=== PATIENT | female | born 1945 | race American Indian/Alaskan Native ===

== ENCOUNTER 2017-12-17 09:25 | Emergency (ER) | payer MEDICARE ==
[2017-12-17 09:26] VITALS: BMI 35.2
--- NOTE | 2017-12-17 10:02 | ED PDOC ---
Arrival/HPI - General Chief Complaint: Back Pain Time Seen by Provider: 12/17/17 09:31 - History of Present Illness Narrative History of Present Illness (Text): 12/17/17 09:49 72yo female with PMHx of hypothyroid, anxiety, hypertension, chronic back pain secondary to spinal stenosis present with complaint of right sided lower back pain that radiates to her lower leg.States her PMD gave her Toradol and Tizanidine, but it didn't help her pain for the past few days. She made appointment with Orthopedist for next month. States she spoke with her PMD and was advised to go to ED. She denies trauma, saddle anesthesia, upper ripping/ tearing back pain, abdominal pain, focal weakness, urinary symptoms, urinary/ fecal incontinence. Past Medical History - Provider Review Nursing Documentation Reviewed: Yes - Infectious Disease Hx of Infectious Diseases: None - Tetanus Immunization Tetanus Immunization: Unknown - Cardiac Hx Pacemaker: No - Pulmonary Hx Respiratory Disorders: No - Neurological Hx Paralysis: No - HEENT Hx Cataracts: Yes (sx on both) - Renal Hx Renal Disorder: No - Endocrine/Metabolic Hx Endocrine Disorders: No Hx Hypothyroidism: Yes - Hematological/Oncological Hx Blood Transfusions: Yes (NOVEMBER 2013) Hx Blood Transfusion Reaction: Yes - Integumentary Hx Dermatological Disorder: No - Musculoskeletal/Rheumatological Hx Musculoskeletal Disorders: No - Gastrointestinal Hx Gastrointestinal Disorders: Yes - Genitourinary/Gynecological Hx Genitourinary Disorders: No Hx Reproductive Disorders: No - Psychiatric Hx Emotional Abuse: No Hx Physical Abuse: No Hx Substance Use: No - Surgical History Hx Cataract Extraction: Yes Hx Orthopedic Surgery: Yes (B/L HIP SX) Hx Vascular Access Device: Yes (PICC LINE) Other/Comment: CARPAL TUNNEL, HEEL SPUR - Anesthesia Hx Anesthesia Reactions: No Hx Malignant Hyperthermia: No - Suicidal Assessment Feels Threatened In Home Enviroment: No Family/Social History - Physician Review Nursing Documentation Reviewed: Yes Family/Social History: Unknown Family HX Smoking Status: Never Smoked Hx Alcohol Use: No Hx Substance Use: No Hx Substance Use Treatment: No Allergies/Home Meds Allergies/Adverse Reactions: Allergies acetaminophen [From Vicodin] Allergy (Verified 12/17/17 09:47) RASH hydrocodone bitartrate [From Vicodin] Allergy (Verified 12/17/17 09:47) RASH oxycodone HCl [From Percocet] Allergy (Verified 12/17/17 09:47) PAIN Home Medications: Home Meds Medication Instructions Recorded Confirmed Cholecalciferol [Vitamin D] 2,000 unit PO DAILY 06/08/16 12/17/17 Cyanocobalamin (Vitamin B-12) 1 tab PO DAILY 06/08/16 12/17/17 [Vitamin B12 68 mg-2 mg] Hydrochlorothiazide [Microzide] 25 mg PO DAILY 06/08/16 12/17/17 Levothyroxine Sodium [Unithroid] 100 mcg PO DAILY 06/08/16 12/17/17 Ketorolac 10 mg PO Q6 PRN 12/17/17 12/17/17 LORazepam [Ativan] 1 mg PO PRN PRN 12/17/17 12/17/17 tiZANidine 4 mg PO TID PRN 12/17/17 12/17/17 Review of Systems - Physician Review All systems were reviewed & negative as marked: Yes - Review of Systems Constitutional: Normal Eyes: Normal ENT: Normal Respiratory: Normal Cardiovascular: Normal Gastrointestinal: Normal Genitourinary Female: Normal Musculoskeletal: Back Pain Skin: Normal Neurological: Normal Endocrine: Normal Hemo/Lymphatic: Normal Psychiatric: Normal Physical Exam Vital Signs Reviewed: Yes Vital Signs Temp Pulse Resp BP Pulse Ox 12/17/17 11:26 98.3 F 58 L 18 152/69 H 98 12/17/17 10:07 98.4 F 53 L 18 160/74 H 100 Temperature: Afebrile Blood Pressure: Normal Pulse: Regular Respiratory Rate: Normal Appearance: Positive for: Well-Appearing, Non-Toxic, Comfortable Pain Distress: None Mental Status: Positive for: Alert and Oriented X 3 - Systems Exam Head: Present: Atraumatic, Normocephalic Pupils: Present: PERRL Extroacular Muscles: Present: EOMI Conjunctiva: Present: Normal Mouth: Present: Moist Mucous Membranes Neck: Present: Normal Range of Motion Respiratory/Chest: Present: Clear to Auscultation, Good Air Exchange. No: Respiratory Distress, Accessory Muscle Use Cardiovascular: Present: Regular Rate and Rhythm, Normal S1, S2. No: Murmurs Abdomen: No: Tenderness, Distention, Peritoneal Signs Back: Present: Paraspinal Tenderness (Right paralumbar tenderness), Pain with Leg Raise (Right leg). No: Midline Tenderness Upper Extremity: Present: Normal Inspection. No: Cyanosis, Edema Lower Extremity: Present: Normal Inspection. No: Edema Neurological: Present: GCS=15, CN II-XII Intact, Speech Normal Skin: Present: Warm, Dry, Normal Color. No: Rashes Psychiatric: Present: Alert, Oriented x 3, Normal Insight, Normal Concentration Medical Decision Making ED Course and Treatment: 12/17/17 18:07 Pt presented for stated history. Her pain was controlled in ED. She notes that her pain improved in ED with medication. she was ambulatory and neurologically intact. she was Dc home with lidoderm patch. She have Toradol and tinazidine at home and was advised to continue with her medication. Referred to her PMD. - Medication Orders Current Medication Orders: Discontinued Medications Cyclobenzaprine HCl (Flexeril) 10 mg PO STAT STA Stop: 12/17/17 09:48 Last Admin: 12/17/17 10:02 Dose: 10 mg Dexamethasone (Decadron Inj) 10 mg IM STAT STA Stop: 12/17/17 09:49 Last Admin: 12/17/17 10:02 Dose: 10 mg IM Administration Charges Document 12/17/17 10:02 SF (Rec: 12/17/17 10:02 SF [id number] Injection Site MAR Injection Site Left Deltoid Charges for Administration # of IM Administrations 1 Ketorolac Tromethamine (Toradol) 60 mg IM STAT STA Stop: 12/17/17 09:48 Last Admin: 12/17/17 10:06 Dose: 60 mg MAR Pain Assessment Document 12/17/17 10:06 SF (Rec: 12/17/17 10:07 SF [id number] Pain Reassessment Is this a pain reassessment? Yes Sleep Is patient sleeping during reassessment? No Presence of Pain Presence of Pain Yes Pain Scale Used Pain Scale Used Numeric IM Administration Charges Document 12/17/17 10:06 SF (Rec: 12/17/17 10:07 SF [id number] Injection Site MAR Injection Site Right Deltoid Charges for Administration # of IM Administrations 1 Disposition/Present on Arrival - Present on Arrival Any Indicators Present on Arrival: No History of DVT/PE: Yes History of Uncontrolled Diabetes: No Urinary Catheter: No History of Decub. Ulcer: No History Surgical Site Infection Following: None - Disposition Have Diagnosis and Disposition been Completed?: Yes Diagnosis: Back pain Disposition: HOME/ ROUTINE Disposition Time: 11:20 Patient Plan: Discharge Condition: STABLE Discharge Instructions (ExitCare): Low Back Pain (DC) Additional Instructions: Follow up with your doctor/Pain management Return to ED for any new or worsening symptoms Prescriptions: Lidocaine 5% [Lidoderm] 1 patch TP BID #10 patch Referrals: Anibal Sarah DO [Primary Care Provider] - Follow up with primary Forms: [employer] ([place])
[2017-12-17 10:15] VITALS: RESP 18
[2017-12-17 11:27] VITALS: BP 152/69; PULSE 58; TEMP 98.3; O2SAT 98
== END 2017-12-17 11:39 | disposition home or self-care (01) ==
LOC: ED 09:25
DX: M54.5 Low back pain (principal); I10 Essential (primary) hypertension; E03.9 Hypothyroidism, unspecified
CPT/HCPCS: 96372; 99284; J1100; J1885

== ENCOUNTER 2017-12-25 17:26 | Inpatient (IN) | payer MEDICARE ==
[2017-12-25 17:45] VITALS: BMI 35.6
--- NOTE | 2017-12-25 18:11 | ED PDOC ---
Arrival/HPI - General Chief Complaint: ENT Problem Time Seen by Provider: 12/25/17 17:48 Historian: Patient - History of Present Illness Narrative History of Present Illness (Text): 12/25/17 18:10 pt p/w + < 1 day onset of worsening throat pain; pt states pain mostly to left throat region, swallowing food/liquid causes more pain; pt states no drooling/ voice changes; + rigors/chills/sweats/shakes yesterday as well as this morning; pt did not felt warm/did not check her temp; pt states no fever, no sob/chest pain, no ear pain, no moon, no coughing/wheezing, no abd pain, + nausea, no vomiting, no appetite, no urinary/bowel changes, no fall/trauma/travel, ? sick contact; pt states she was in the Emergency department 2 weeks prior for lower back pain/strain evaluation; pt also noted 2 weeks timeframe of persistent burping; pt states no LOC, + mild dizziness/lightheadedness; pt is here for further eval; pt's without other complaints. PCP: DR george Time/Duration: 24 hours Symptom Onset: Sudden Symptom Course: Unchanged Quality: Stabbing Severity Level: Severe Activities at Onset: Rest Context: Home Past Medical History - Provider Review Nursing Documentation Reviewed: Yes - Travel History Have you recently traveled outside [place] w/in the past 3 mons?: No - Past History Past History: No Previous - Infectious Disease Hx of Infectious Diseases: None - Tetanus Immunization Tetanus Immunization: Unknown - Reproductive Menopause: Yes Currently : No - Cardiac Hx Pacemaker: No - Pulmonary Hx Respiratory Disorders: No - Neurological Hx Paralysis: No - HEENT Hx Cataracts: Yes (sx on both) - Renal Hx Renal Disorder: No - Endocrine/Metabolic Hx Endocrine Disorders: No Hx Hypothyroidism: Yes - Hematological/Oncological Hx Blood Transfusions: Yes (NOVEMBER 2013) Hx Blood Transfusion Reaction: Yes - Integumentary Hx Dermatological Disorder: No - Musculoskeletal/Rheumatological Hx Musculoskeletal Disorders: No - Gastrointestinal Hx Gastrointestinal Disorders: Yes - Genitourinary/Gynecological Hx Genitourinary Disorders: No Hx Reproductive Disorders: No - Psychiatric Hx Emotional Abuse: No Hx Physical Abuse: No Hx Substance Use: No - Surgical History Hx Cataract Extraction: Yes Hx Orthopedic Surgery: Yes (B/L HIP SX) Hx Vascular Access Device: Yes (PICC LINE) Other/Comment: CARPAL TUNNEL, HEEL SPUR - Anesthesia Hx Anesthesia Reactions: No Hx Malignant Hyperthermia: No - Suicidal Assessment Feels Threatened In Home Enviroment: No Family/Social History - Physician Review Nursing Documentation Reviewed: Yes Family/Social History: No Known Family HX Smoking Status: Never Smoked Hx Alcohol Use: No Hx Substance Use: No Hx Substance Use Treatment: No Allergies/Home Meds Allergies/Adverse Reactions: Allergies acetaminophen [From Vicodin] Allergy (Verified 12/25/17 17:43) RASH hydrocodone bitartrate [From Vicodin] Allergy (Verified 12/25/17 17:43) RASH oxycodone HCl [From Percocet] Allergy (Verified 12/25/17 17:43) PAIN Home Medications: Home Meds Medication Instructions Recorded Confirmed Cholecalciferol [Vitamin D] 2,000 unit PO DAILY 06/08/16 12/25/17 Cyanocobalamin (Vitamin B-12) 1 tab PO DAILY 06/08/16 12/25/17 [Vitamin B12 68 mg-2 mg] Hydrochlorothiazide [Microzide] 25 mg PO DAILY 06/08/16 12/25/17 Levothyroxine Sodium [Unithroid] 100 mcg PO DAILY 06/08/16 12/25/17 Ketorolac 10 mg PO Q6 PRN 12/17/17 12/25/17 LORazepam [Ativan] 1 mg PO PRN PRN 12/17/17 12/25/17 tiZANidine 4 mg PO TID PRN 12/17/17 12/25/17 Review of Systems - Review of Systems Constitutional: Fatigue. absent: Night Sweats Eyes: Normal ENT: Sore Throat. absent: Hearing Changes Respiratory: Normal. absent: SOB, Cough, Sputum, Wheezing Cardiovascular: Normal. absent: Chest Pain, Orthopnea, Syncope Gastrointestinal: Nausea. absent: Abdominal Pain, Vomiting Genitourinary Female: Normal Musculoskeletal: Normal Skin: Normal Neurological: Dizziness. absent: Headache Endocrine: Diaphoresis Hemo/Lymphatic: Normal Psychiatric: Normal Physical Exam - Physical Exam Narrative Physical Exam (Text): 12/25/17 18:44 General: alert/awake, GCS = 15, oriented x 3, resting in bed, uncomfortable, cooperative, interactive; mild distress due to pain Head: NC/AT EYE: PERRLA, EOMI, sclera anicteric, no nystagmus, no photophobia; visual field intact b/l Facial: WNL Oral: uvula/tongue are midline, no exudate/lesions, noted posterior pharynx mild erythema/no ulcerations/lesions, no drooling/stridor, no dysphonia; intact dentitions; no fetid odor NECK: intact ROM, no midline tenderness, no nuchal rigidity, no meningeal signs ; no step off; no crepitus noted Chest: CTA b/l, no w/r/r; no tachypenia, no accessory muscle use noted Cardiac: +S1, +S2, no m/r/r, no tachycardia Abdominal: +BS, soft/nd/nt, well nourished patient; no masses/rebound/guarding/ rigidity; no jaeger's sign, no mcburney's point tenderness Extremities: intact ROM, strength 5/5 grossly intact in all limbs, neurovasc intact b/l; + ambulatory; reflex +2/2; no pitting edema noted b/l BACK: no step off, no midline tenderness, NO crepitus, no gross deformities noted; Intact ROM SKIN: cap refill < 1 sec, no ulcerations, no petechiae, no rashes; no gross pallor noted NEURO: CNII-XII WNL, no facial asymmetries, no slurr speech, oriented x 3 NIH stroke scale ~ 0 Psych: normal insight, normal affect; follows command with ease Vital Signs Reviewed: Yes Vital Signs Temp Pulse Resp BP Pulse Ox 12/25/17 21:54 67 19 168/80 H 97 12/25/17 17:44 98.5 F 78 18 159/76 H 97 Temperature: Afebrile Blood Pressure: Hypertensive Pulse: Regular Respiratory Rate: Normal Appearance: Positive for: Well-Appearing, Non-Toxic, Uncomfortable. No: Ill- Appearing, Unkept Pain Distress: Mild Mental Status: Positive for: Alert and Oriented X 3 - Systems Exam Head: Present: Atraumatic, Normocephalic Medical Decision Making ED Course and Treatment: 12/25/17 18:30 Impression: throat pain/rigors i have consider all the differential diagnosis regarding pt's chief medical complaints/clinical findings, including but are not limited to: throat pain/ rigors A/P: throat pain/rigors - labs - rapid strept - xray - supportive care - observe/reevaluation 1999 pt felt some improvement/throat pain improvement after medications pt + weakness vital signs WNL 2030 with abnl lab results, will recommend patient for admission paged Dr Shaheen Cazares I spoke to Dr Cazares, radiographer cardiac catheterization PCP, made aware, agrees with admission; would like to consult ENT (dr gold), ID (Jericaredtiffani) 12/25/17 22:45 noted pt with diaphoresis vital signs appears stable however pt is made aware of her medical results agrees with admission Re-evaluation Time: 20:15 Reassessment Condition: Improving,but remains with symptoms - Critical Care Critical Care Minutes: 30 minutes Critical Care Time: Excluding Proc Time Narrative Critical Care (Text): 12/25/17 20:45 critical care time: 30min, excluding procedure time, excluding time teaching residents/students/mid-level providers; including initial eval/diagnosis, diagnostic interpretation, re-eval, consultations, final disposition - Lab Interpretations Lab Results: 12/25/17 18:55 12/25/17 18:55 Lab Results 12/25/17 20:10: Grp A Beta Strep Ag Negative 12/25/17 18:55: pO2 105 H, VBG pH 7.43, VBG pCO2 40.0, VBG HCO3 26.5, VBG Total CO2 27.7, VBG O2 Sat (Calc) 99.9 H, VBG Base Excess 2.0, VBG Potassium 3.6, Sodium 131.0 L, Chloride 99.0, Glucose 107 H, Lactate 0.9, FiO2 21.0, Venous Blood Potassium 3.6 12/25/17 18:55: WBC 21.9 H D, RBC 4.31, Hgb 12.1, Hct 36.2, MCV 84.0, MCH 28.1, MCHC 33.4, RDW 13.8, Plt Count 229, MPV 10.4, Gran % 75.8 H, Lymph % (Auto) 12.6 L, [place] % (Auto) 11.4 H, Eos % (Auto) 0.1 L, Baso % (Auto) 0.1, Gran # 16.59 H, Lymph # (Auto) 2.8, [place] # (Auto) 2.5 H, Eos # (Auto) 0.0, Baso # (Auto ) 0.02 12/25/17 18:55: Sodium 134, Chloride 96 L, Potassium 3.5 L, Carbon Dioxide 25, Anion Gap 16, BUN 10, Creatinine 0.9, Est GFR ( Amer) > 60, Est GFR (Non- Af Amer) > 60, Random Glucose 103, Calcium 9.7, Total Bilirubin 0.9, AST 21, ALT 25, Alkaline Phosphatase 85, Troponin I < 0.01 D, Total Protein 7.5, Albumin 4.2, Globulin 3.3, Albumin/Globulin Ratio 1.3, Lipase 24 12/25/17 18:45: Urine Color Yellow, Urine Appearance Clear, Urine pH 6.0, Ur Specific [place] 1.015, Urine Protein Negative, Urine Glucose (UA) Negative, Urine Ketones Negative, Urine Blood Trace-intact H, Urine Nitrate Negative, Urine Bilirubin Negative, Urine Urobilinogen 0.2, Ur Leukocyte Esterase Negative , Urine RBC 0 - 2, Urine WBC 0 - 2, Ur Epithelial Cells 1 - 3, Urine Bacteria Few I have reviewed the lab results: Yes Interpretation: Abnormal lab values (elevated WBCs) - RAD Interpretation Narrative RAD Interpretations (Text): 12/25/17 20:20 Preliminary radiology reading by Dr. Rivas: Chest X-ray reviewed, shows no acute disease. Soft tissue neck reviewed, shows no acute disease. 12/25/17 22:39 CT Scan NECK SOFT TISSUE W/CONTRAST Exam Date: 12/25/17 This imaging exam was performed at [facility] EXAM: CT Neck With Intravenous Contrast EXAM DATE/TIME: 12/25/2017 8:21 PM CLINICAL HISTORY: 72 years old, female; Pain; Neck pain and throat pain; Patient HX: Throat pain, fever, elevated wbcs TECHNIQUE: Axial computed tomography images of the neck with intravenous contrast. All CT scans at this facility use one or more dose reduction techniques, viz.: automated exposure control; ma/kV adjustment per patient size (including targeted exams where dose is matched to indication; i.e. head); or iterative reconstruction technique. Coronal and sagittal reformatted images were created and reviewed. CONTRAST: 97 mL of OMNIPAQUE 350 administered intravenously. COMPARISON: DX - NECK SOFT TISSUE 2017-12-25 18:59 FINDINGS: There are 2 lesions within the right thyroid gland. The first demonstrates heterogeneous enhancement image 36 and measures 1.6 cm in diameter. The second demonstrates homogeneous enhancement image 43 and measures 9 mm in diameter. Correlation with laboratory values is recommended as well as followup ultrasound. Mucosal retention cyst left maxillary sinus. There is a small amount of fluid in the mastoid air cells greater on the left that may be chronic although represent developing mastoiditis. The vertebral arteries and carotid arteries appear normal. Scattered lymph nodes are noted throughout the neck none of which appear pathologically enlarged. No tonsillar or peritonsillar abscess. The airway is patent. IMPRESSION: Thyroid lesions which followup is recommended. Small fluid in the mastoid air cells as discussed above. Dictated By: Patricia Dunn MD Dictated Date/Time: 12/25/172230 Signed By: Patricia Dunn MD Date Signed: 2230 Transcribed By: DYLAN Transcribe Date/Time : 12/25/172230 [id number] Radiology Orders: 12/25/17 18:05 CHEST TWO VIEWS (PA/LAT) [RAD] Stat NECK SOFT TISSUE [RAD] Stat 12/25/17 20:21 NECK SOFT TISSUE W/CONTRAST [CT] Stat Fitness Technician: ED Physician, Radiologist - EKG Interpretation EKG Interpretation (Text): 12/25/17 18:52 NSR at 70 bpm, normal axis, no ectopy, no st-t changes, NORMAL EKG; unchanged compare with old ekg 06/2014 Interpreted by ED Physician: Yes Type: 12 lead EKG Comparison: Similar to previous EKG - Medication Orders Current Medication Orders: Discontinued Medications Dexamethasone (Decadron Inj) 10 mg IVP STAT STA Stop: 12/25/17 18:37 Last Admin: 12/25/17 19:37 Dose: 10 mg IVP Administration Document 12/25/17 19:37 EQ (Rec: 12/25/17 19:37 EQ [id number]) Charges for Administration # of IVP Administrations 1 Ampicillin Sodium/Sulbactam (Sodium 3 gm/ Sodium Chloride) 100 mls @ 100 mls/ hr IVPB STAT STA PRN Reason: Protocol Stop: 12/25/17 21:20 Last Admin: 12/25/17 21:17 Dose: 100 mls/hr eMAR Start Stop Document 12/25/17 21:17 EQ (Rec: 12/25/17 21:18 EQ [id number]) Intravenous Solution Start Date 12/25/17 Start Time 21:17 Ketorolac Tromethamine (Toradol) 30 mg IVP STAT STA Stop: 12/25/17 18:08 Last Admin: 12/25/17 19:37 Dose: 30 mg MAR Pain Assessment Document 12/25/17 19:37 EQ (Rec: 12/25/17 19:37 EQ [id number]) Pain Reassessment Is this a pain reassessment? No Sleep Is patient sleeping during reassessment? No Presence of Pain Presence of Pain Yes IVP Administration Document 12/25/17 19:37 EQ (Rec: 12/25/17 19:37 EQ [id number]) Charges for Administration # of IVP Administrations 1 Lidocaine HCl (Lidocaine 2% Viscous) 15 ml MM STAT STA Stop: 12/25/17 18:08 Last Admin: 12/25/17 19:37 Dose: 15 ml Lidocaine HCl (Lidocaine 2% Viscous) 15 ml MM STAT STA Stop: 12/25/17 21:35 Last Admin: 12/25/17 21:42 Dose: 15 ml Metoclopramide HCl (Reglan) 10 mg IVP STAT STA Stop: 12/25/17 18:37 Last Admin: 12/25/17 19:37 Dose: 10 mg IVP Administration Document 12/25/17 19:37 EQ (Rec: 12/25/17 19:37 EQ [id number]) Charges for Administration # of IVP Administrations 1 - Scribe Statement The provider has reviewed the documentation as recorded by the Scribross Munoz All medical record entries made by the Scribe were at my direction and personally dictated by me. I have reviewed the chart and agree that the record accurately reflects my personal performance of the history, physical exam, medical decision making, and the department course for this patient. I have also personally directed, reviewed, and agree with the discharge instructions and disposition. Disposition/Present on Arrival - Present on Arrival Any Indicators Present on Arrival: No History of DVT/PE: Yes History of Uncontrolled Diabetes: No Urinary Catheter: No History of Decub. Ulcer: No History Surgical Site Infection Following: None - Disposition Have Diagnosis and Disposition been Completed?: Yes Diagnosis: Throat pain in adult, Leukocytosis, At risk for sepsis, Weakness Disposition: HOSPITALIZED Disposition Time: 20:30 Patient Plan: Admission, Telemetry Patient Problems: Current Active Problems Problem Status Onset Throat pain in adult Acute Leukocytosis Acute At risk for sepsis Acute Weakness Acute Condition: STABLE
[2017-12-25 19:06] LABS: BASO # 0.02 K/mm3 (0.0-2.0); BASO % 0.1 % (0.0-3.0); EOS % 0.1 % (1.5-5.0); GRAN # 16.59 (1.4-6.5); GRAN % 75.8 % (50.0-68.0); HEMOGLOBIN 12.1 g/dL (12.0-16.0); LYMPH # 2.8 (1.2-3.4); LYMPH % 12.6 % (22.0-35.0); MEAN CORPUSCULAR HEMOGLOBIN 28.1 pg (25.0-35.0); MEAN CORPUSCULAR HGB CONC 33.4 g/dl (31.0-37.0); MEAN PLATELET VOLUME 10.4 fl (7.0-11.0); MONO # 2.5 (0.1-0.6); MONO % 11.4 % (1.0-6.0); RBC 4.31 10^6/uL (3.5-6.1); RED CELL DISTRIBUTION WIDTH 13.8 % (11.5-14.5); WHITE BLOOD COUNT 21.9 10^3/ul (4.5-11.0)
[2017-12-25 19:20] LABS: VENOUS BLOOD GAS PO2 105 mm/Hg (30-55); VENOUS BLOOD PH 7.43 (7.32-7.43)
[2017-12-25 19:26] LABS: ALB/GLOB RATIO 1.3 (1.1-1.8); ALBUMIN 4.2 g/dL (3.0-4.8); ALT/SGPT 25 U/L (7-56); AST/SGOT 21 U/L (14-36); BLOOD UREA NITROGEN 10 mg/dL (7-21); CALCIUM 9.7 mg/dL (8.4-10.5); GFR AFRICAN-AMERICAN > 60; GFR NON-AFRICAN AMERICAN > 60; LIPASE 24 U/L (23-300)
[2017-12-25 19:44] LABS: TROPONIN I < 0.01 ng/mL
[2017-12-25 20:45] LABS: URINE BILIRUBIN NEGATIVE (NEGATIVE); URINE BLOOD TRACE-INTACT (NEGATIVE); URINE GLUCOSE (UA) NEGATIVE (NEGATIVE); URINE LEUKOCYTE ESTERASE NEGATIVE Leu/uL (NEGATIVE); URINE PROTEIN NEGATIVE mg/dL (<30 mg/dL); URINE UROBILINOGEN 0.2 E.U./dL (<1 E.U./dL)
[2017-12-25 20:46] LABS: URINE APPEARANCE CLEAR (CLEAR); URINE COLOR YELLOW (YELLOW)
[2017-12-25] MEDS ORDERED: Iohexol 350 MG/100 ML VIAL ONE (20:59)
[2017-12-25 21:05] LABS: URINE RBC 0 - 2 /hpf (0-2); URINE WBC 0 - 2 /hpf (0-6)
[2017-12-25 21:06] LABS: URINE BACTERIA FEW (NEG)
--- NOTE | 2017-12-25 22:32 | CT ---
EXAM: CT Neck With Intravenous Contrast EXAM DATE/TIME: 12/25/2017 8:21 PM CLINICAL HISTORY: 72 years old, female; Pain; Neck pain and throat pain; Patient HX: Throat pain, fever, elevated wbcs TECHNIQUE: Axial computed tomography images of the neck with intravenous contrast. All CT scans at this facility use one or more dose reduction techniques, viz.: automated exposure control; ma/kV adjustment per patient size (including targeted exams where dose is matched to indication; i.e. head); or iterative reconstruction technique. Coronal and sagittal reformatted images were created and reviewed. CONTRAST: 97 mL of OMNIPAQUE 350 administered intravenously. COMPARISON: DX - NECK SOFT TISSUE 2017-12-25 18:59 FINDINGS: There are 2 lesions within the right thyroid gland. The first demonstrates heterogeneous enhancement image 36 and measures 1.6 cm in diameter. The second demonstrates homogeneous enhancement image 43 and measures 9 mm in diameter. Correlation with laboratory values is recommended as well as followup ultrasound. Mucosal retention cyst left maxillary sinus. There is a small amount of fluid in the mastoid air cells greater on the left that may be chronic although represent developing mastoiditis. The vertebral arteries and carotid arteries appear normal. Scattered lymph nodes are noted throughout the neck none of which appear pathologically enlarged. No tonsillar or peritonsillar abscess. The airway is patent. IMPRESSION: Thyroid lesions which followup is recommended. Small fluid in the mastoid air cells as discussed above.
[2017-12-26 09:26] LABS: BASO # 0.01 K/mm3 (0.0-2.0); GRAN # 19.68 (1.4-6.5); GRAN % 92.7 % (50.0-68.0); HEMOGLOBIN 12.2 g/dL (12.0-16.0); LYMPH # 1.2 (1.2-3.4); LYMPH % 5.6 % (22.0-35.0); MEAN CELL VOLUME 83.8 fl (80.0-105.0); MEAN CORPUSCULAR HEMOGLOBIN 27.9 pg (25.0-35.0); MEAN CORPUSCULAR HGB CONC 33.2 g/dl (31.0-37.0); MEAN PLATELET VOLUME 10.4 fl (7.0-11.0); MONO # 0.4 (0.1-0.6); MONO % 1.7 % (1.0-6.0); PLATELET COUNT 218 10^3/uL (120.0-450.0); RBC 4.38 10^6/uL (3.5-6.1); RED CELL DISTRIBUTION WIDTH 13.8 % (11.5-14.5); WHITE BLOOD COUNT 21.3 10^3/ul (4.5-11.0)
[2017-12-26 09:36] LABS: ALB/GLOB RATIO 1.3 (1.1-1.8); ALBUMIN 4.2 g/dL (3.0-4.8); ALT/SGPT 20 U/L (7-56); AST/SGOT 20 U/L (14-36); BLOOD UREA NITROGEN 14 mg/dL (7-21); CALCIUM 9.7 mg/dL (8.4-10.5); GFR AFRICAN-AMERICAN > 60; GFR NON-AFRICAN AMERICAN > 60
[2017-12-26] MEDS ORDERED: Levothyroxine 100 MCG TAB PO SCH (10:00)
[2017-12-26 10:08] LABS: LYMPHOCYTE 6 % (22.0-35.0); MONOCYTE 1 % (1.0-6.0); NEUTROPHIL 93 % (50.0-70.0); PLATELET ESTIMATE NORMAL (NORMAL)
[2017-12-26] MEDS: Sodium Chloride 0.45% 1,000 ML IV SCH (10:57)
--- NOTE | 2017-12-26 11:17 | RAD ---
HISTORY: Chills and sweats. No cough. COMPARISON: Comparison chest dated 10/26/2014 TECHNIQUE: Chest PA and lateral FINDINGS: LUNGS: Lungs appear hyperinflated ; rule out sequela of COPD. Minor bibasilar atelectasis and or scarring with mild minor blunting both CP angles left greater than right which could be secondary to chronic pleural thickening or tiny effusions though the former is favored PLEURA: As above. No pneumothorax apparent. CARDIOVASCULAR: Heart size within range of normal. Aorta is slightly ectatic and uncoiled. OSSEOUS STRUCTURES: Mild multilevel degenerative spondylosis of the thoracic spine. VISUALIZED UPPER ABDOMEN: Normal. OTHER FINDINGS: None. IMPRESSION: Lungs appear hyperinflated ; rule out COPD. Minor bibasilar atelectasis and or scarring with mild minor blunting both CP angles left greater than right which could be secondary to chronic pleural thickening or tiny effusions though the former is favored
--- NOTE | 2017-12-26 11:20 | RAD ---
PROCEDURE: Radiographs of the neck (soft tissue). The the HISTORY: left neck pain; difficulty swallowing COMPARISON: None. TECHNIQUE: Frontal and Lateral Radiographs of the neck, optimized for soft tissue visualization. FINDINGS: SOFT TISSUES: Diffuse prominence prevertebral soft tissues likely anatomic variation. If symptoms persist or infection suspected clinically recommend follow-up contrast CT scan of the neck. . Free margin of the epiglottis unremarkable CERVICAL SPINE: Moderate to significant multilevel degenerative spondylosis of the cervical spine OTHER FINDINGS: None. IMPRESSION: Diffuse prominence prevertebral soft tissues likely anatomic variation. If symptoms persist or infection suspected clinically recommend follow-up contrast CT scan of the neck. . Airway appears patent. . Moderate to significant multilevel degenerative spondylosis of the cervical spine
[2017-12-26] MEDS: Piperacillin/Tazobact 3.375 gm 100 ML IVPB SCH ×3 (11:58→23:07)
--- NOTE | 2017-12-26 12:42 | CT ---
PROCEDURE: CT Chest without contrast HISTORY: WBC 21k COMPARISON: Comparison made with the chest radiograph 12/25/2017. TECHNIQUE: Contiguous axial images were obtained through the chest without intravenous contrast enhancement. Sagittal and coronal reconstructions were performed. Radiation dose (DLP): 638.23 mGy-cm. This CT exam was performed using one or more of the following dose reduction techniques: Automated exposure control, adjustment of the mA and/or kV according to patient size, and/or use of iterative reconstruction technique. . FINDINGS: LUNGS: Clear lungs. Visualized airway clear. Minor scarring changes of/chronic atelectasis both lung bases including the left lingular region. Lung room are otherwise clear. No evidence of parenchymal mass or obvious nodule. No effusion or pneumothorax. MEDIASTINUM: Heart size is within range of normal. . There is a tiny pericardial effusion. Ascending thoracic aorta measures approximately 3.37 cm and descending thoracic aorta measures approximately 2.6 cm. Pulmonary trunk measures approximately 2.5 cm. No significant mediastinal adenopathy. Evaluation for hilar adenopathy is limited due to the lack of circulating intravenous contrast material. The thyroid gland is enlarged, right lobe greater than left. Thyroid gland is heterogeneous in appearance. The follow-up thyroid ultrasound could be performed for further evaluation if indicated. There is a small hiatal hernia. PLEURA: As above. BONES: Multilevel degenerative spondylosis of the thoracic spine. There is a small rounded chronic appearing Schmorl's nodes inferior T11 endplate. Vacuum disc phenomena not noted at T11 T12 disc space level as well as scattered at several additional mid and upper thoracic levels. There are no acute compression fractures no retropulsed fragments. UPPER ABDOMEN: Grossly unremarkable. OTHER FINDINGS: None. IMPRESSION: No acute infiltrates. Minor chronic atelectasis or scarring changes both lung bases including the left lingular region.
--- NOTE | 2017-12-26 15:44 | CARD ---
APPROVED REPORT EKG Measurement Heart [id number] <Conclusion> Normal sinus rhythm Normal ECG
--- NOTE | 2017-12-26 21:14 | HP ---
DATE OF EXAM: HISTORY OF PRESENT ILLNESS: I was called down to the emergency room to see Chasity. She is a sweet 72-year-old female with very severe sore throat pain, also in the left side swallowing fluid/liquid became very painful. She had some shaking chills yesterday so warmed and check her temperature and she came to the emergency room and got very bad. PAST MEDICAL HISTORY: She has cataracts of both her eyes. She is hypothyroid. She had blood transfusions in the past with a blood transfusion reaction in the past. She had gastrointestinal issues. PAST SURGICAL HISTORY: Cataract surgery, bilateral hip surgery, PICC line was placed, carpel tunnel and heel spur surgeries. FAMILY HISTORY: No known family history. SOCIAL HISTORY: No smoker. No drinking. No drugs. ALLERGIES: SHE HAS ALLERGIES TO VICODIN AND PERCOCET. MEDICATIONS: She is on vitamin D, vitamin B12, hydrochlorothiazide, Unithroid, ketorolac, Ativan and Tizanidine. REVIEW OF SYSTEMS: She is very fatigued. She had chills and rigors and not feeling well. Normal vision and hearing. No changes. Does has severe sore throat that is how it got started. No shortness of breath or cough. No chest pain or palpitations. No nausea, vomiting, constipation, or diarrhea. She had problems swallowing. No problems urinating. No skin issues that she knows of. She was little bit dizzy. No headache. She was very sweaty. No depression. PHYSICAL EXAMINATION: VITAL SIGNS: She had 98.5 temperature, 78 pulse, 18 respiratory rate, 159/76 blood pressure, 97% O2 sat on room air. GENERAL: She is alert, oriented x3. GCS is 15, comfortable, severe sore throat. HEENT: Extraocular muscles are intact. Pupils equal, reactive to light. Throat is mildly red. Tongue, uvula midline. NECK: Supple. Good range of motion. No nuchal rigidity. No meningeal signs. LUNGS: Clear to auscultation. HEARY: Regular rate. Normal S1, S2. ABDOMEN: Soft. Positive bowel sounds. Nontender. No guarding. No rebound. No CVA tenderness. EXTREMITIES: Have no edema. She could move all 4 extremities. SKIN: No apparent ulcers or rashes. NEUROLOGIC: GCS is 15 . Cranial nerves II-XII grossly intact. Normal insight. No depression. Thyroid midline. No palpable lymphadenopathy appreciated. She is having throat pain, rigors. LABORATORY DATA: She had blood tests done and a CAT scan of the neck, which showed thyroid lesions, small fluid in the mastoid air cells. We called in Ear, Nose and Throat evaluation. She has a 21.9 white count, it is very high; I called in Infectious Disease. She has a 12.1 hemoglobin, 36.2 hematocrit with 229 platelets. She has a 134 sodium, potassium 3.5 we will repeat it this morning, that was done last night. We will see if she needs to have replacement of potassium. BUN 10, creatinine 0.9, GFR is greater than 60, sugar is calcium is 9.7. Total bili is 0.9, AST is 21, ALT is 25, alk phos 85. Troponin I is less than 0.01, total protein 7.5, albumin is 4.2, globulin 1.3. Lipase is 24. Urine is clean. Serology is negative for strep. She has a severe sore throat. She has a leukocytosis, thyroid nodules, hypothyroid. She will be on IV antibiotics, have a consult the Ear, Nose and Throat and Infectious Disease. We will watch her very closely. Sam Cazares DO MTDD
--- NOTE | 2017-12-26 21:54 | CON ---
DATE: 12/26/2017 CHIEF COMPLAINT: Difficulty swallowing. HISTORY OF PRESENT ILLNESS: The patient is in bed. The patient was seen in the emergency room. This is a 72-year-old female with a past medical history significant for hypertension, hypothyroidism, colorectal cancer, cataracts, hard of hearing, arthritis, spinal stenosis, anxiety, has had chemotherapy for the colorectal cancer in 2014, has had a PICC line in the past, hysterectomy, and bilateral hip surgery, who is admitted through the emergency room. The patient was seen by Dr. Jonathan Rivas in the emergency room, complaining of difficulty swallowing, and the patient states that since her stay in the emergency room, her symptoms have improved. REVIEW OF SYSTEMS: A 12-point review of systems is performed. There are no fevers or chills. No chest pain, shortness of breath, or cough. No headaches or blurry vision. No abdominal pain. She states she feels nauseated, but no vomiting. No dysuria or frequency. PAST MEDICAL HISTORY: Significant for hypertension and hypothyroidism, coronary artery disease, colorectal cancer, cataracts, hard of hearing, spinal stenosis, arthritis, and anxiety. PAST SURGICAL HISTORY: Significant for hysterectomy, bilateral hip surgeries, PICC line placement in the past. ALLERGIES: THE PATIENT IS ALLERGIC TO ACETAMINOPHEN, HYDROCODONE, AND OXYCODONE. MEDICATIONS AT HOME: Include Toradol, Ativan, Microzide, vitamin B12, vitamin D, and levothyroxine. PHYSICAL EXAMINATION: GENERAL: The patient is in bed, answering questions appropriately. VITAL SIGNS: Was seen earlier in the emergency room with a temperature of 98, pulse of 65, respiratory rate of 18, blood pressure is 113/50. HEENT: Reveals mild erythema of the pharynx. No exudate. No lymph nodes are palpated. NECK: Supple. LUNGS: Have decreased breath sounds. HEART: Normal S1, S2. ABDOMEN: Soft, nontender. No rebound or guarding. LABORATORY DATA: Reveals the patient's white count of 21,900, hemoglobin of 12, and platelets of 229 with 72% granulocytosis. Blood gases are noted and chemistries are reviewed. LFTs are normal. Creatinine is normal and urinalysis is noted. Group A strep rapid testing is negative. Microbiology is pending. The patient had a CAT scan of the soft tissue of the neck, was read by Dr. Patricia Dunn. No abscesses, no tonsillar or peritonsillar abscesses were shown. The patient had a chest x-ray, reports are not available. ASSESSMENT AND PLAN: This is a 72-year-old female with history of hypothyroidism; hypertension; colorectal cancer, has had chemotherapy; arthritis; spinal stenosis; anxiety, now presenting with difficulty swallowing and dysphagia with leukocytosis of 21,000. We will treat the patient with Zosyn and we will order a CT of the chest. Should have ENT and GI consultations to rule out esophageal collection. We will follow with you pending pancultures, throat and blood cultures, ENT evaluation, GI evaluation, on Zosyn. Thierno Chua MD
[2017-12-27] MEDS: Piperacillin/Tazobact 3.375 gm 100 ML IVPB SCH ×4 (05:23→23:20)
[2017-12-27] MEDS: Levothyroxine 100 MCG TAB PO SCH (06:31)
[2017-12-27 07:38] LABS: ALB/GLOB RATIO 1.1 (1.1-1.8); ALBUMIN 3.9 g/dL (3.0-4.8); ALT/SGPT 15 U/L (7-56); AST/SGOT 20 U/L (14-36); BLOOD UREA NITROGEN 17 mg/dL (7-21); CALCIUM 9.4 mg/dL (8.4-10.5); GFR AFRICAN-AMERICAN > 60; GFR NON-AFRICAN AMERICAN > 60
[2017-12-27 08:44] LABS: HEMOGLOBIN 11.5 g/dL (12.0-16.0); MEAN CELL VOLUME 84.8 fl (80.0-105.0); MEAN CORPUSCULAR HEMOGLOBIN 27.4 pg (25.0-35.0); MEAN CORPUSCULAR HGB CONC 32.3 g/dl (31.0-37.0); MEAN PLATELET VOLUME 10.4 fl (7.0-11.0); RBC 4.2 10^6/uL (3.5-6.1); RED CELL DISTRIBUTION WIDTH 13.8 % (11.5-14.5)
--- NOTE | 2017-12-27 12:03 | PN ---
DATE: 12/27/2017 SUBJECTIVE: I saw her this morning resting in bed. She feels about the same as when she came in,throat is a little bit less painful. She chest pain this morning, also indigestion. I will check the troponins, go ahead and get the Cardiology consult and put on some Protonix IV. She is being seen by Infectious Disease and a consult for Ear, Nose, and Throat. She is on IV fluids, lorazepam, HydroDIURIL. I added Protonix, Synthroid and Zosyn IV. OBJECTIVE: VITAL SIGNS: She has a 98.1 temperature, 61 pulse, 140/78 blood pressure, 18 respiratory rate, 98% O2 sat on room air. HEENT: Head is atraumatic, normocephalic. Throat is moist, not red. HEART: Regular rate. LUNGS: Decreased breath sounds, but clear. No reproducible chest pain. She felt it was indigestion. She burped. ABDOMEN: Soft, nontender. Positive bowel sounds. Obese. EXTREMITIES: No edema. DATA: She has a 137 sodium, potassium 4.3, BUN 17, creatinine 0.9. GFR is greater than 60, sugar is 106, calcium is 9.4, total bili is 0.7. AST is 20, ALT is 15, alkaline phosphatase 77. First troponin on 12/25 was less than 0.01, I ordered one this morning stat. Total protein 7.5. White count was canceled this morning. Yesterday's white count was 21.3, still quite elevated. I will re-do another CBC this morning. I am not sure why that was canceled. Microbiology shows no growth. She is being seen by Infectious Disease. She had a CAT scan of the neck, which is okay and also, CAT scan of the chest. She is having leukocytosis. The chest CAT scan not bad. White count is still 21,000, still on Zosyn. Awaiting ENT, Cardiology and I will call in GI because Infectious Disease wants a GI consult and we will see what they say also. This is a patient with severe leukocytosis of 21,000; severe sore throat and thyroid nodules, and now, chest pain. Sam Cazares, DO MTDD
--- NOTE | 2017-12-27 13:00 | CP.PCM.PN ---
Subjective - Date & Time of Evaluation Date of Evaluation: 12/27/17 Time of Evaluation: 11:25 - Subjective Subjective: Feeling better, swallowing better, no fevers. Less pain on swallowing. Objective - Vital Signs/Intake and Output Vital Signs (last 24 hours): Temp Pulse Resp BP Pulse Ox 97.5 F L 60 20 157/73 H 96 12/27/17 08:33 12/27/17 08:33 12/27/17 08:33 12/27/17 08:33 12/27/17 08:33 Intake and Output: 12/27/17 12/27/17 06:59 18:59 Intake Total 2340 Output Total 0 Balance 2340 - Medications Medications: Current Medications Hydrochlorothiazide (Hydrodiuril) 25 mg PO DAILY [facility] Last Admin: 12/27/17 10:13 Dose: 25 mg Sodium Chloride (Sodium Chloride 0.45%) 1,000 mls @ 30 mls/hr IV .Q24H MARK Last Admin: 12/26/17 10:57 Dose: 30 mls/hr Piperacillin Sod/Tazobactam Sod (Zosyn 3.375 In Ns 100ml) 100 mls @ 200 mls/hr IVPB Q6 MARK PRN Reason: Protocol Stop: 01/04/18 12:01 Last Admin: 12/27/17 12:31 Dose: 200 mls/hr Levothyroxine Sodium (Synthroid) 100 mcg PO ACB MARK Last Admin: 12/27/17 06:31 Dose: 100 mcg Lorazepam (Ativan) 1 mg PO BID PRN; Protocol PRN Reason: Anxiety Last Admin: 12/27/17 01:19 Dose: 1 mg Pantoprazole Sodium (Protonix Inj) 40 mg IVP DAILY MARK Last Admin: 12/27/17 10:13 Dose: 40 mg - Labs Labs: 12/27/17 08:30 12/27/17 06:20 - Constitutional Appears: Chronically Ill - Head Exam Head Exam: NORMAL INSPECTION - ENT Exam ENT Exam: Mucous Membranes Moist - Neck Exam Neck Exam: absent: Meningismus - Respiratory Exam Respiratory Exam: Decreased Breath Sounds - Cardiovascular Exam Cardiovascular Exam: +S1, +S2 - GI/Abdominal Exam GI & Abdominal Exam: Soft. absent: Tenderness Assessment and Plan - Assessment and Plan (Free Text) Plan: Assessment consider pharyngitis in this patient with Esophageal CA, R/O developing mastoiditis colon cancer S/P chemotherapy HTN hypothyroidism spinal stenosis cataracts bilateral hip surgery anxiety Plan Continue Zosyn pending ENT evaluation will monitor clinically
[2017-12-27 17:38] VITALS: RESP 18
--- NOTE | 2017-12-27 22:51 | CON ---
DATE: 12/27/2017 HISTORY The patient is 72-year-old woman who presented with leukocytosis and sepsis. In the hospital, the patient had a short episode of substernal pressure, which was relieved after drinking parul L and burping. The patient is currently pain free. No previous cardiac history in the past. She denies diabetes mellitus. She does admit to hypertension and occasional pedal edema. SOCIAL HISTORY: The patient does not smoke. REVIEW OF SYSTEMS: A 14-point review of systems was reviewed. No other additional cardiac symptoms are noted. PHYSICAL EXAMINATION: VITAL SIGNS: Stable. NECK: Negative JVD. LUNGS: Without rales. HEART: With S1, S2. EXTREMITIES: Without edema. LABORATORY DATA: EKG is within normal limits. Normal sinus rhythm. Laboratories includes negative troponins x2. IMPRESSION: 1. Transient epigastric pressure relieved with burping. 2. No evidence for acute coronary syndrome. 3. Hypertension. 4. Occasional pedal edema. 5. Obesity. PLAN: Given these findings, there is no evidence for acute coronary syndrome. However, her cardiac risk factors would warrant doing a stress test at some point. We will arrange for an outpatient Lexiscan once her sepsis is resolved. Nathan Bowman MD
--- NOTE | 2017-12-28 01:59 | CON ---
DATE: CHIEF COMPLAINT: Sore throat. HISTORY OF PRESENT ILLNESS: A 72-year-old female. Admitted through [facility], now seen in room 377. Patient with one day onset of worsening throat pain. Pain is mostly on left side of throat region. Swallowing food and liquids have become more painful and difficult. Patient has no drooling or voice changes, and states chills and noted sweats, states yesterday as well as this morning. No shortness of breath or chest pain. History of ear complaints with history of ET tubes. No coughing or wheezing. No abdominal pain. Complains of nausea. No vomiting. Admitted through the emergency department and now consult per ENT and over last 24 hours of acute throat pain. At the time of the exam, patient is noted to be feeling much better. ALLERGIES: STATED, ACETAMINOPHEN, HYDROCODONE AND OXYCODONE. MEDICATIONS: Patient noted to be on vitamin D, vitamin B12, hydrochlorothiazide 25 mg daily, ketorolac 10 mg p.o. every 6 hours, levothyroxine 100 mcg p.o. daily, lorazepam as needed 1 mg and tizanidine 4 mg t.i.d. REVIEW OF SYSTEMS: CONSTITUTIONAL: Fatigue, throat pain, night sweats. EYES : Normal. ENT: Sore throat. RESPIRATORY: Normal. CARDIOVASCULAR: Normal. GASTROINTESTINAL: Nausea. GENERAL AND MUSCULAR: Normal. SKIN: Normal. PHYSICAL EXAMINATION: GENERAL: At that time, patient was noted to be oriented. VITAL SIGNS: As of 12/25/2017, on admission, pulse 67, respiratory rate 19, blood pressure 168/80, followup of 159/76, pulse ox 97%. Patient was afebrile at that time, slightly hypertensive. Pulse was noted to be regular and respiratory rate is normal. HEENT: Eyes: PERRLA. Extraocular muscles intact. Face show within normal limits. NECK: Soft and full range of motion. No midline tenderness. ABDOMEN: Noted to be soft and full range of motion and patient is mobile. IMPRESSION AND PLAN: Throat pain/febrile with leukocytosis. Lab work, as stated, 21.9 white count, 12.1 and 36 H and H, and 229. Other lab work was noncontributory. A CAT scan was done at that time of initial, and as stated, neck soft tissue with contrast asymmetry, and exam was performed at [facility]. A 72-year-old female with neck pain, axial computed imaging, soft neck, there are two lesions within the right thyroid as stated to patient, and recommended for followup. First demonstrating a 36 and 1.6 cm diameter, demonstrating homogeneous enhancement of 9 mm. Mucosal retention cyst in left maxillary, noncontributory to present infectious process. There is a small amount of fluid in the mastoids with a long history of chronic mastoid, which is chronic and with an acute exacerbation. Small scattered lymph nodes as noted throughout the neck, which appeared pathologically enlarged. Discontinued medications. Patient was placed on antibiotic coverage and was started on Decadron at the time of initial exam. Patient was placed on lidocaine viscous, which was noted to improve the symptoms of throat pain. The patient now seen today with laryngoscopy done at bedside. Direct laryngoscopy was then done through the nose, right nasal side, left noted with pain without sinusitis and/or purulence, with an acute inflammatory process noted along the posterior wall of the pharynx extending down with patent glottic chink and good vocal cord mobility. Along with neck pain, the patient has a acute pharyngitis. Patient to continue on pain medication and antibiotic regimen, viscous lidocaine p.r.n. Patient is seen tolerating p.o. and states feeling much better. Patient's white count will be followed as discussed with patient to continue therapy both in house and over the next 48 hours, and discharge to home and follow in the office of Dr. Rowdy Palomo with possible future laryngoscopy to see resolution of laryngeal edema and inflammatory process. Rowdy Palomo DO
[2017-12-28] MEDS: Sodium Chloride 0.45% 1,000 ML IV SCH (05:50)
[2017-12-28] MEDS: Piperacillin/Tazobact 3.375 gm 100 ML IVPB SCH ×4 (05:50→23:23)
[2017-12-28] MEDS: Levothyroxine 100 MCG TAB PO SCH (06:29)
[2017-12-28 06:37] LABS: HEMOGLOBIN 11.4 g/dL (12.0-16.0); MEAN CELL VOLUME 86.2 fl (80.0-105.0); MEAN CORPUSCULAR HEMOGLOBIN 27.1 pg (25.0-35.0); MEAN CORPUSCULAR HGB CONC 31.5 g/dl (31.0-37.0); MEAN PLATELET VOLUME 10.6 fl (7.0-11.0); RBC 4.2 10^6/uL (3.5-6.1); RED CELL DISTRIBUTION WIDTH 14.2 % (11.5-14.5)
[2017-12-28 07:38] LABS: ALB/GLOB RATIO 1.1 (1.1-1.8); ALBUMIN 3.7 g/dL (3.0-4.8); CALCIUM 9.1 mg/dL (8.4-10.5)
--- NOTE | 2017-12-28 14:58 | CP.PCM.PN ---
Subjective - Date & Time of Evaluation Date of Evaluation: 12/28/17 Time of Evaluation: 11:45 - Subjective Subjective: Swallowing better, no fevers, resting comfortably in bed. Objective - Vital Signs/Intake and Output Vital Signs (last 24 hours): Temp Pulse Resp BP Pulse Ox 97.3 F L 54 L 18 142/61 99 12/27/17 17:37 12/28/17 02:00 12/27/17 17:37 12/27/17 17:37 12/27/17 17:37 Intake and Output: 12/28/17 12/28/17 06:59 18:59 Intake Total 660 Balance 660 - Medications Medications: Current Medications Hydrochlorothiazide (Hydrodiuril) 25 mg PO DAILY [facility] Last Admin: 12/27/17 10:13 Dose: 25 mg Sodium Chloride (Sodium Chloride 0.45%) 1,000 mls @ 30 mls/hr IV .Q24H MARK Last Admin: 12/28/17 05:50 Dose: 30 mls/hr Piperacillin Sod/Tazobactam Sod (Zosyn 3.375 In Ns 100ml) 100 mls @ 200 mls/hr IVPB Q6 MARK PRN Reason: Protocol Stop: 01/04/18 12:01 Last Admin: 12/28/17 05:50 Dose: 200 mls/hr Levothyroxine Sodium (Synthroid) 100 mcg PO ACB [facility] Last Admin: 12/28/17 06:29 Dose: 100 mcg Lorazepam (Ativan) 1 mg PO BID PRN; Protocol PRN Reason: Anxiety Last Admin: 12/27/17 01:19 Dose: 1 mg Pantoprazole Sodium (Protonix Inj) 40 mg IVP DAILY [facility] Last Admin: 12/27/17 10:13 Dose: 40 mg - Labs Labs: 12/28/17 06:30 12/27/17 06:20 - Constitutional Appears: Chronically Ill - Head Exam Head Exam: NORMAL INSPECTION - ENT Exam ENT Exam: Mucous Membranes Moist - Neck Exam Neck Exam: absent: Meningismus - Respiratory Exam Respiratory Exam: Decreased Breath Sounds - Cardiovascular Exam Cardiovascular Exam: +S1, +S2 - GI/Abdominal Exam GI & Abdominal Exam: Soft. absent: Tenderness Assessment and Plan - Assessment and Plan (Free Text) Plan: Assessment acute pharyngitis R/O developing mastoiditis colon cancer S/P chemotherapy HTN hypothyroidism spinal stenosis cataracts bilateral hip surgery anxiety Plan Continue Zosyn day 3; reviewed ENT evaluation will continue to monitor clinically
--- NOTE | 2017-12-28 15:51 | CP.PCM.CON ---
History of Present Illness - History of Present Illness History of Present Illness: CC: Sore throat HPI: 72 year old female with h/o CRC s/p R hemicolectomy who presents with sore throat. She says the symptoms started over hte weekend. She says her throat was painful and it was difficult to swallow. She vomited once. She also has long standing history of mild intermittent reflux with burping and belching, but doesn't usually have dysphagia. She has h/o endoscopy, possibly 2013 she says. No chest pain or sob. Her throat has improved with abx. She was seen by ENT. She is eating now. She takes tums intermittently and parul wilfrido which helps. She is trying to eat a heart haelthy diet. PMHx hypothyroidism, CRC PSHx R hemicolectomy FHx negative for gi cancer SHx nonsmoker/drinker ROS a comprehensive review of systems was perforemd and was negative apart from HPI Past Patient History - Infectious Disease Hx of Infectious Diseases: None - Tetanus Immunizations Tetanus Immunization: Unknown - Past Social History Smoking Status: Never Smoked - CARDIAC Hx Pacemaker: No Hx Peripheral Edema: Yes (HX BLE) - PULMONARY Hx Respiratory Disorders: No - NEUROLOGICAL Hx Neurological Disorder: No - HEENT Hx Cataracts: Yes (sx on both) - RENAL Hx Chronic Kidney Disease: No - ENDOCRINE/METABOLIC Hx Hypothyroidism: Yes - HEMATOLOGICAL/ONCOLOGICAL Hx Anemia: Yes Hx Cancer: Yes (Colorectal - In remission) Hx Chemotherapy: Yes (2014) - INTEGUMENTARY Hx Dermatological Problems: No - MUSCULOSKELETAL/RHEUMATOLOGICAL Hx Arthritis: Yes - GASTROINTESTINAL Hx Gastrointestinal Disorders: Yes Hx Gastroesophageal Reflux: Yes HX Swallowing Problems: Yes (Due to severly sore throat) - GENITOURINARY/GYNECOLOGICAL Hx Genitourinary Disorders: No - PSYCHIATRIC Hx Anxiety: Yes Hx Depression: Yes ("occasional") Hx Emotional Abuse: No Hx Physical Abuse: No Hx Substance Use: No - SURGICAL HISTORY Hx Surgeries: Yes Hx Orthopedic Surgery: Yes (B/L HIP SX) Other/Comment: CARPAL TUNNEL, HEEL SPUR, Port placement, removal - ANESTHESIA Hx Anesthesia Reactions: No Hx Malignant Hyperthermia: No Meds Allergies/Adverse Reactions: Allergies Allergy/AdvReac Type Severity Reaction Status Date / Time acetaminophen [From Vicodin] Allergy RASH Verified 12/25/17 17:43 hydrocodone bitartrate Allergy RASH Verified 12/25/17 17:43 [From Vicodin] oxycodone HCl [From Percocet] Allergy PAIN Verified 12/25/17 17:43 - Medications Medications: Current Medications Hydrochlorothiazide (Hydrodiuril) 25 mg PO DAILY [facility] Last Admin: 12/28/17 10:06 Dose: 25 mg Sodium Chloride (Sodium Chloride 0.45%) 1,000 mls @ 30 mls/hr IV .Q24H MARK Last Admin: 12/28/17 05:50 Dose: 30 mls/hr Piperacillin Sod/Tazobactam Sod (Zosyn 3.375 In Ns 100ml) 100 mls @ 200 mls/hr IVPB Q6 MARK PRN Reason: Protocol Stop: 01/04/18 12:01 Last Admin: 12/28/17 12:13 Dose: 200 mls/hr Levothyroxine Sodium (Synthroid) 100 mcg PO ACB MARK Last Admin: 12/28/17 06:29 Dose: 100 mcg Lorazepam (Ativan) 1 mg PO BID PRN; Protocol PRN Reason: Anxiety Last Admin: 12/27/17 01:19 Dose: 1 mg Pantoprazole Sodium (Protonix Inj) 40 mg IVP DAILY [facility] Last Admin: 12/28/17 10:06 Dose: 40 mg Physical Exam - Constitutional Appears: Well, Non-toxic, No Acute Distress - Head Exam Head Exam: ATRAUMATIC, NORMOCEPHALIC - Eye Exam Eye Exam: Normal appearance, PERRL. absent: Scleral icterus - ENT Exam ENT Exam: Normal Exam, Normal Oropharynx - Neck Exam Neck exam: Negative for: Lymphadenopathy, Thyromegaly - Respiratory Exam Respiratory Exam: Clear to Auscultation Bilateral, NORMAL BREATHING PATTERN. absent: Wheezes, Respiratory Distress, Stridor - Cardiovascular Exam Cardiovascular Exam: REGULAR RHYTHM, +S1, +S2 - GI/Abdominal Exam GI & Abdominal Exam: Soft. absent: Guarding, Organomegaly, Tenderness - Extremities Exam Extremities exam: Positive for: normal capillary refill. Negative for: pedal edema - Neurological Exam Neurological exam: Alert, Oriented x3 - Psychiatric Exam Psychiatric exam: Normal Affect, Normal Mood - Skin Skin Exam: Dry, Normal Color, Warm Results - Vital Signs Recent Vital Signs: Last Vital Signs Temp 98 F 12/28/17 08:29 Pulse 54 L 12/28/17 08:29 Resp 18 06/05/18 08:29 BP 148/64 12/28/17 08:29 Pulse Ox 95 12/28/17 08:29 - Labs Result Diagrams: 12/28/17 06:30 12/28/17 06:30 Labs: Laboratory Results - last 24 hr 12/28/17 12/28/17 06:30 06:30 WBC 11.0 D RBC 4.20 Hgb 11.4 L Hct 36.2 MCV 86.2 MCH 27.1 MCHC 31.5 RDW 14.2 Plt Count 259 MPV 10.6 Sodium 140 Potassium 3.9 Chloride 102 Carbon Dioxide 29 Anion Gap 13 BUN 16 Creatinine 1.1 Est GFR ( Amer) 59 Est GFR (Non-Af Amer) 49 Random Glucose 89 Calcium 9.1 Total Bilirubin 0.5 AST 20 ALT 23 Alkaline Phosphatase 74 Total Protein 6.9 Albumin 3.7 Globulin 3.2 Albumin/Globulin Ratio 1.1 Assessment & Plan - Assessment and Plan (Free Text) Assessment: 72 year old female with h/o Hypothyroidism, CRC s/p R hemicolectomy a/w sore throat. 1. Sore throat 2. GERD 3. H/o colon cancer Plan: -can consider a 2 week trial of acid suppressive therapy, although she is already significantly improved and is worried about medication interaction with thryoid medicine -if acid suppressive therapy is started, it should be from synthroid administration by 4 hours at least -consider outpatient endoscopy depending on clinical course -last colonoscopy 2015 was ok repeat recommended in 2019 - Date & Time Date: 12/28/17 Time: 15:51
--- NOTE | 2017-12-28 15:54 | PN ---
DATE: 12/28/2017 SUBJECTIVE: Chasity is doing quite well although, she is scheduled for Ear, Nose and Throat doctor to see her today. They came in this morning. She is on IV antibiotics and heart is doing better. Overall, she is doing a little bit better. PHYSICAL EXAMINATION: VITAL SIGNS: She has 98 temperature, 54 pulse, 148/64 blood pressure, 18 respiratory rate, 95% O2 sat on room air. HEENT: Head is atraumatic, normocephalic. HEART: Regular rate. LUNGS: Decreased breath sounds, but clear. ABDOMEN: Soft, obese. nontender. EXTREMITIES: No edema. LABORATORY DATA: She is currently having sodium 140, potassium 3.9. BUN 16, creatinine 1.1, GFR is 49, sugar is 89, calcium is 9.1, AST is 20, ALT is 23, alkaline phosphatase 74, troponin I is less than 0.01, total protein 6.9. White count was 20 and now it is down to 11 and finally broke after 3 days of IV antibiotics. Hemoglobin 11.4, hematocrit 36.2, platelets of 259. ASSESSMENT AND PLAN: She is being seen by Cardiology, Infectious Disease and Ear, Nose and Throat. Take several more days of IV antibiotics. We can probably discharge her tomorrow. The patient had leukocytosis, sore throat, hypothyroidism, thyroid nodules. Sam Cazares DO
[2017-12-29 00:34] VITALS: BP 145/68; TEMP 97.8; O2SAT 97
[2017-12-29] MEDS: Piperacillin/Tazobact 3.375 gm 100 ML IVPB SCH (05:30)
[2017-12-29 06:01] VITALS: PULSE 70
[2017-12-29 06:24] LABS: HEMOGLOBIN 12.6 g/dL (12.0-16.0); MEAN CELL VOLUME 86.3 fl (80.0-105.0); MEAN CORPUSCULAR HEMOGLOBIN 27.3 pg (25.0-35.0); MEAN CORPUSCULAR HGB CONC 31.7 g/dl (31.0-37.0); MEAN PLATELET VOLUME 10.3 fl (7.0-11.0); RBC 4.61 10^6/uL (3.5-6.1); WHITE BLOOD COUNT 12.6 10^3/ul (4.5-11.0)
[2017-12-29] MEDS: Levothyroxine 100 MCG TAB PO SCH (06:30)
[2017-12-29 07:20] LABS: ALB/GLOB RATIO 1.1 (1.1-1.8); ALT/SGPT 30 U/L (7-56); AST/SGOT 21 U/L (14-36); BLOOD UREA NITROGEN 11 mg/dL (7-21); CALCIUM 9.5 mg/dL (8.4-10.5); GFR AFRICAN-AMERICAN > 60; GFR NON-AFRICAN AMERICAN 54
--- NOTE | 2017-12-29 07:34 | CP.PCM.PN ---
Subjective - Date & Time of Evaluation Date of Evaluation: 12/29/17 Time of Evaluation: 07:00 - Subjective Subjective: GI Fellow PGY4 Progress Note Pt seen and examined at bedside, pt doing well with no complaints of dysphagia, acid reflux or heartburn. Pt is tolerating her diet with no nausea or vomiting. ROS: A 12pt ROS was negative except as above. Objective - Vital Signs/Intake and Output Vital Signs (last 24 hours): Temp Pulse Resp BP Pulse Ox 97.8 F 70 18 145/68 97 12/29/17 00:00 12/29/17 06:00 12/29/17 00:00 12/29/17 00:00 12/29/17 00:00 Intake and Output: 12/29/17 12/29/17 06:59 18:59 Intake Total 1260 240 Balance 1260 240 - Medications Medications: Current Medications Hydrochlorothiazide (Hydrodiuril) 25 mg PO DAILY [facility] Last Admin: 12/28/17 10:06 Dose: 25 mg Sodium Chloride (Sodium Chloride 0.45%) 1,000 mls @ 30 mls/hr IV .Q24H [facility] Last Admin: 12/28/17 05:50 Dose: 30 mls/hr Piperacillin Sod/Tazobactam Sod (Zosyn 3.375 In Ns 100ml) 100 mls @ 200 mls/hr IVPB Q6 MARK PRN Reason: Protocol Stop: 01/04/18 12:01 Last Admin: 12/29/17 05:30 Dose: 200 mls/hr Levothyroxine Sodium (Synthroid) 100 mcg PO ACB [facility] Last Admin: 12/29/17 06:30 Dose: 100 mcg Lorazepam (Ativan) 1 mg PO BID PRN; Protocol PRN Reason: Anxiety Last Admin: 12/27/17 01:19 Dose: 1 mg Pantoprazole Sodium (Protonix Inj) 40 mg IVP DAILY [facility] Last Admin: 12/28/17 10:06 Dose: 40 mg - Labs Labs: 12/29/17 06:05 12/29/17 06:05 - Constitutional Appears: Non-toxic, No Acute Distress - Head Exam Head Exam: ATRAUMATIC, NORMAL INSPECTION, NORMOCEPHALIC - Eye Exam Eye Exam: EOMI, Normal appearance, PERRL Pupil Exam: PERRL - ENT Exam ENT Exam: Mucous Membranes Moist, Normal Exam - Neck Exam Neck Exam: Full ROM, Normal Inspection - Respiratory Exam Respiratory Exam: Clear to Ausculation Bilateral, NORMAL BREATHING PATTERN - Cardiovascular Exam Cardiovascular Exam: REGULAR RHYTHM, RRR, +S1, +S2 - GI/Abdominal Exam GI & Abdominal Exam: Soft, Tenderness, Normal Bowel Sounds. absent: Distended, Guarding, Organomegaly - Rectal Exam Rectal Exam: Deferred - Extremities Exam Extremities Exam: Full ROM, Normal Inspection - Back Exam Back Exam: NORMAL INSPECTION - Neurological Exam Neurological Exam: Alert, Awake, Oriented x3 - Psychiatric Exam Psychiatric exam: Normal Affect, Normal Mood - Skin Skin Exam: Dry, Intact, Normal Color, Warm Assessment and Plan - Assessment and Plan (Free Text) Assessment: 72 year old female with h/o Hypothyroidism, CRC s/p R hemicolectomy in 2013 presentinng with sore throat and dysphagia. 1. Acute Pharyngitis 2. GERD 3. Dysphagia 4. H/o colon cancer s/p R hemicolectomy in 2013 Plan: -Continue supportive acre with pain control and antiemetics -Dysphagia resolved, tolerating diet, like from acute infection -Pt seen by ENT with acute pharyngitis on laryngoscope exam -Continue abx per primary team -Clinically improved -Continue PPI 40mg daily for a trial of acid suppressive therapy, it should be from synthroid administration by 4 hours -Recommend outpatient endoscopy if no clinical improvement with medication -Pt's last colonoscopy [place] [address] Christine was negative, recommend repeat in 2019 -Please call with any questions or concerns
[2017-12-29] MEDS ORDERED: Potassium Chloride 20 mEq ER Tab PO ONE (07:50)
--- NOTE | 2017-12-30 07:35 | DS ---
I saw her this morning resting comfortably in bed. She is doing a lot better, she is feeling a lot better. She is in good spirits. I also discussed this with Dr. Colon, the Infectious Disease doctor. She was on Zosyn IV. We can change it to 875 of Augmentin twice a day. She will also be on Protonix 40 mg daily; she will take her Synthroid, her HydroDIURIL, her lorazepam. She is comfortable. She is feeling better. She is swallowing better. She wants to go home. PHYSICAL EXAMINATION: VITAL SIGNS: She has a 97.8 temperature, 67 pulse, 145/68 blood pressure, 18 respiratory rate, and 97% O2 sat on room air. HEENT: Head is atraumatic, normocephalic. Throat is moist. NECK: Supple. HEART: Regular rate. LUNGS: Decreased breath sounds but clear. ABDOMEN: Soft, obese, nontender. EXTREMITIES: No edema. LABORATORY DATA: She has a 141 sodium, potassium is 3.5 - we will give her potassium before she leaves, BUN 11, creatinine 1, GFR is 54, sugar is 92, calcium is 9.5, total bili is 0.7, AST is 21, ALT is 30, alk phos 79. Troponin I is less than 0.01. Total protein 7.5. The white count is 12.6, but Infectious Disease said she can go home; hemoglobin to 12.6, hematocrit 39.8, platelets of 322. IMPRESSION: She is ruled out Streptococcus pyogenes group A, and Augmentin will cover that. She was seen by ENT, GI and Infectious Disease. She will be discharged to follow up in the office. Augmentin, Protonix, replace potassium before she leaves, she understands this. I will see her in the office in a week. She had leukocytosis, sore throat, thyroid, thyroid nodules, probable mastoiditis which we will be treating with the Augmentin. Sam Cazares DO [facility]
== END 2017-12-29 10:08 | disposition home or self-care (01) | DRG 153 ==
LOC: ED 17:26 → ERH 20:33 → 3RSO 12-26 16:29
PROVIDERS: ADMIT Family Medicine; ATTEND Family Medicine
PROC: 0CJS8ZZ Inspection of Larynx, Via Natural or Artificial Opening Endoscopic (ICD-10-PCS; principal; 2017-12-27)
DX: H70.90 Unspecified mastoiditis, unspecified ear (principal); J02.9 Acute pharyngitis, unspecified; E03.9 Hypothyroidism, unspecified; E04.1 Nontoxic single thyroid nodule; K21.9 Gastro-esophageal reflux disease without esophagitis; I10 Essential (primary) hypertension; I25.10 Atherosclerotic heart disease of native coronary artery without angina pectoris; F41.9 Anxiety disorder, unspecified; E66.9 Obesity, unspecified; H91.90 Unspecified hearing loss, unspecified ear; R13.10 Dysphagia, unspecified; M48.00 Spinal stenosis, site unspecified; M54.2 Cervicalgia; Z85.048 Personal history of other malignant neoplasm of rectum, rectosigmoid junction, and anus; Z68.35 Body mass index [BMI] 35.0-35.9, adult; Z98.41 Cataract extraction status, right eye; Z98.42 Cataract extraction status, left eye; Z90.49 Acquired absence of other specified parts of digestive tract; Z92.21 Personal history of antineoplastic chemotherapy

== ENCOUNTER 2018-01-28 13:11 | Emergency (ER) | payer MEDICARE ==
[2018-01-28 13:11] VITALS: BMI 34.0
[2018-01-28 13:28] VITALS: BP 133/79
--- NOTE | 2018-01-28 13:45 | ED PDOC ---
Arrival/HPI - General Chief Complaint: ENT Problem Time Seen by Provider: 01/28/18 13:40 Historian: Patient - History of Present Illness Narrative History of Present Illness (Text): 01/28/18 13:40 72 year old female, whose PMH includes hypothyroidism and hypertension, who presents to the emergency department complaining of sore throat x 5 days. she has associated pain with swallowing. She is able to drink fluids with no problem. She is able to eat soft foods with no problem but does have some pain. She has some mild difficulty swalling. Patient denies shortness of breath, chest pain, fever, chills, bodyaches, vomiting, dizziness, or other complaints. PMD: Dr. Sarah Time/Duration: > week Symptom Onset: Gradual Symptom Course: Worsening Context: Home Past Medical History - Provider Review Nursing Documentation Reviewed: Yes - Past History Past History: No Previous - Infectious Disease Hx of Infectious Diseases: None - Tetanus Immunization Tetanus Immunization: Unknown - Cardiac Hx Peripheral Edema: Yes (HX BLE) - Pulmonary Hx Respiratory Disorders: No - Neurological Hx Neurological Disorder: No - HEENT Hx Cataracts: Yes (sx on both) - Renal Hx Renal Disorder: No - Endocrine/Metabolic Hx Hypothyroidism: Yes - Hematological/Oncological Hx Anemia: Yes Hx Cancer: Yes (Colorectal - In remission) Hx Chemotherapy: Yes (2014) - Integumentary Hx Dermatological Disorder: No - Musculoskeletal/Rheumatological Hx Arthritis: Yes - Gastrointestinal Hx Gastrointestinal Disorders: Yes Hx Gastroesophageal Reflux: Yes HX Swallowing Problems: Yes (Due to severly sore throat) - Genitourinary/Gynecological Hx Genitourinary Disorders: No - Psychiatric Hx Anxiety: Yes Hx Depression: Yes ("occasional") Hx Substance Use: No - Surgical History Hx Orthopedic Surgery: Yes (B/L HIP SX) Other/Comment: CARPAL TUNNEL, HEEL SPUR, Port placement, removal - Anesthesia Hx Anesthesia Reactions: No Hx Malignant Hyperthermia: No - Suicidal Assessment Feels Threatened In Home Enviroment: No Family/Social History - Physician Review Nursing Documentation Reviewed: Yes Family/Social History: Unknown Family HX Smoking Status: Never Smoked Hx Alcohol Use: No Hx Substance Use: No Hx Substance Use Treatment: No Allergies/Home Meds Allergies/Adverse Reactions: Allergies acetaminophen [From Vicodin] Allergy (Verified 01/28/18 13:29) RASH hydrocodone bitartrate [From Vicodin] Allergy (Verified 01/28/18 13:29) RASH oxycodone HCl [From Percocet] Allergy (Verified 01/28/18 13:29) PAIN Review of Systems - Review of Systems ENT: Voice Changes (mild hoarseness that resolves after she coughs), Sore Throat. absent: Rhinorrhea Respiratory: Cough, Sputum. absent: SOB Cardiovascular: absent: Chest Pain Gastrointestinal: absent: Abdominal Pain Genitourinary Female: absent: Dysuria Musculoskeletal: absent: Back Pain Skin: absent: Rash Neurological: absent: Headache Endocrine: absent: Diaphoresis Physical Exam Vital Signs Reviewed: Yes Vital Signs Temp Pulse Resp BP Pulse Ox 01/28/18 15:27 98.5 F 85 18 99 01/28/18 13:25 98.9 F 82 17 133/79 97 Temperature: Afebrile Blood Pressure: Normal Pulse: Regular Respiratory Rate: Normal Appearance: Positive for: Well-Appearing, Non-Toxic, Comfortable Pain Distress: None Mental Status: Positive for: Alert and Oriented X 3 - Systems Exam Head: Present: Atraumatic, Normocephalic Pupils: Present: PERRL Extroacular Muscles: Present: EOMI Conjunctiva: Present: Normal Pharnyx: Present: ERYTHEMA, Muffled/Hoarse Voice (mildly ), Other (mild hoarseness resolves after she coughs). No: EXUDATE, Uvular Deviation Neck: Present: Normal Range of Motion, Lymphadenopathy (left cervical ), Other ( no mass or tenderness ) Respiratory/Chest: Present: Clear to Auscultation, Good Air Exchange. No: Respiratory Distress, Accessory Muscle Use, Wheezes, Decreased Breath Sounds, Rales, Retracting, Rhonchi Cardiovascular: Present: Regular Rate and Rhythm, Normal S1, S2. No: Murmurs Abdomen: Present: Normal Bowel Sounds. No: Tenderness, Distention, Peritoneal Signs, Rebound, Guarding Neurological: Present: GCS=15, CN II-XII Intact, Speech Normal Skin: Present: Warm, Dry, Normal Color. No: Rashes Psychiatric: Present: Alert, Oriented x 3, Normal Insight, Normal Concentration Medical Decision Making ED Course and Treatment: 01/28/18 Impression: 72 year old female wiith sore throat Differential Diagnosis included but are not limited to: pharyngitis Plan: -- Augmentin, Decadron, and Lidocaine 2% -- Neck soft tissue x-ray -- Reassess and disposition Progress Notes: PROCEDURE: Radiographs of the neck (soft tissue). IMPRESSION: No acute findings related to/accounting for the clinical presentation. No significant interval change compared to the prior examination(s). 01/28/18 14:00 Previous records reviewed. Patient will be given Augmentin and will follow up with ENT doctor Dr. Palomo who she has seen before. Patient was advised to return to emergency department if she worsens, if she's unable to drink fluids, if she develops lightheadedness, weakness, fever, or any other concern. - RAD Interpretation Radiology Orders: 01/28/18 13:49 NECK SOFT TISSUE [RAD] Stat - Medication Orders Current Medication Orders: Discontinued Medications Amoxicillin/Clavulanate Potassium (Augmentin 875 Mg-125 Mg Tab) 1 tab PO STAT STA PRN Reason: Protocol Stop: 01/28/18 13:50 Last Admin: 01/28/18 15:26 Dose: 1 tab Dexamethasone (Decadron Inj) 10 mg IM STAT STA Stop: 01/28/18 13:50 Last Admin: 01/28/18 15:26 Dose: 10 mg IM Administration Charges Document 01/28/18 15:26 [email or web address] (Rec: 01/28/18 15:27 [id number]) Injection Site MAR Injection Site Left Deltoid Charges for Administration # of IM Administrations 1 Lidocaine HCl (Lidocaine 2% Viscous) 15 ml MM STAT STA Stop: 01/28/18 13:50 Last Admin: 01/28/18 15:27 Dose: 15 ml - Scribe Statement The provider has reviewed the documentation as recorded by the Sirena Romero Provider Scribe Attestation: All medical record entries made by the Scrkaren were at my direction and personally dictated by me. I have reviewed the chart and agree that the record accurately reflects my personal performance of the history, physical exam, medical decision making, and the department course for this patient. I have also personally directed, reviewed, and agree with the discharge instructions and disposition. Disposition/Present on Arrival - Present on Arrival Any Indicators Present on Arrival: No History of DVT/PE: No History of Uncontrolled Diabetes: No Urinary Catheter: No History of Decub. Ulcer: No History Surgical Site Infection Following: None - Disposition Have Diagnosis and Disposition been Completed?: Yes Diagnosis: Pharyngitis Disposition: HOME/ ROUTINE Disposition Time: 15:27 Patient Plan: Discharge Condition: IMPROVED Discharge Instructions (ExitCare): Sore Throat in Adults Additional Instructions: ANTHONY ARCHIBALD, thank you for letting us take care of you today. Your provider was Falquito Hinds DO and you were treated for Pharyngitis. The emergency medical care you received today was directed at your acute symptoms. If you were prescribed any medication, please fill it and take as directed. It may take several days for your symptoms to resolve. Return to the Emergency Department if your symptoms worsen, do not improve, or if you have any other problems. Please contact your doctor or call one of the physicians/clinics you have been referred to that are listed on the Patient Visit Information form that is included in your discharge packet. Bring any paperwork you were given at discharge with you along with any medications you are taking to your follow up visit. Our treatment cannot replace ongoing medical care by a primary care provider outside of the emergency department. Thank you for allowing the [facility] team to be part of your care today. If you had an X-Ray or CT scan: A Radiologist will review the ED reading if any change in treatment is needed we will contact you. If you had a blood, urine, or wound culture: It will take several days for the results, if any change in treatment is needed we will contact you. If you had an STI test: It will take 48 hours for the results. Please call after 1 week if you have not heard back. Prescriptions: Amoxicillin/Clavulanate [Augmentin 875 MG-125 MG] 1 tab PO BID #20 tab Benzocaine/Menthol [Cepacol Sore Throat Lozenge] 1 each MM Q2H PRN #20 lozenge PRN Reason: Sore Throat Referrals: Rowdy Palomo DO [Staff Provider] - Follow up with primary Forms: [employer] (Serbian)
[2018-01-28] MEDS ORDERED: Amoxicillin-Clav 875-125 mg Tab PO STA (13:49)
--- NOTE | 2018-01-28 14:47 | RAD ---
PROCEDURE: Radiographs of the neck (soft tissue). HISTORY: sore throat COMPARISON: 12/25/2017 soft tissue neck. 12/25/2017 CT neck. TECHNIQUE: Frontal and Lateral Radiographs of the neck, optimized for soft tissue visualization. FINDINGS: SOFT TISSUES: Unremarkable. No radiopaque foreign body seen. CERVICAL SPINE: Cervical spondylotic changes. OTHER FINDINGS: None. IMPRESSION: No acute findings related to/accounting for the clinical presentation. No significant interval change compared to the prior examination(s).
[2018-01-28 15:28] VITALS: PULSE 85; RESP 18; TEMP 98.5; O2SAT 99
== END 2018-01-28 15:28 | disposition home or self-care (01) ==
LOC: ED 13:11
DX: J02.9 Acute pharyngitis, unspecified (principal); I10 Essential (primary) hypertension; E03.9 Hypothyroidism, unspecified
CPT/HCPCS: 70360; 96372; 99281; J1100

== ENCOUNTER 2018-06-20 10:15 | Emergency (ER) | payer MEDICARE ==
[2018-06-20 10:38] VITALS: BMI 36.0
[2018-06-20 10:40] VITALS: TEMP 98.2
[2018-06-20] MEDS ORDERED: Sodium Chloride 0.9% 1,000 ML IV STA (11:05)
[2018-06-20] MEDS ORDERED: Iohexol 240 (50 ml) ONE (11:11)
--- NOTE | 2018-06-20 11:20 | ED PDOC ---
Arrival/HPI - General Chief Complaint: GI Problem Time Seen by Provider: 06/20/18 10:56 Historian: Patient - History of Present Illness Narrative History of Present Illness (Text): 06/20/18 11:05 73 year old female, whose PMHx includes hypothyroidism and hypertension, who presents to the emergency department complaining of diarrhea since Wednesday. Patient informs progressively worsening frequents episodes of diarrhea, which st arted as a brownish lose stool and later turned to green and then to watery output. Patient denies any associated abdominal pain, nausea or vomiting. Patient denies any fevers, chills, headache, dizziness, chest pain, shortness of breath, urinary symptoms, vaginal discharge or bleeding, back pain, neck pain, or any other complaints. Patient denies any recent novelty food or recent travel. Patient denies any sick contact. PMD: Dr. Sarah Time/Duration: < week Symptom Onset: Gradual Symptom Course: Unchanged Activities at Onset: Light Context: Home Past Medical History - Provider Review Nursing Documentation Reviewed: Yes - Past History Past History: No Previous - Infectious Disease Hx of Infectious Diseases: None - Tetanus Immunization Tetanus Immunization: Unknown - Reproductive Menopause: No - Cardiac Hx Peripheral Edema: Yes (HX BLE) - Pulmonary Hx Respiratory Disorders: No - Neurological Hx Neurological Disorder: No - HEENT Hx Cataracts: Yes (sx on both) - Renal Hx Renal Disorder: No - Endocrine/Metabolic Hx Hypothyroidism: Yes - Hematological/Oncological Hx Anemia: Yes Hx Cancer: Yes (Colorectal - In remission) Hx Chemotherapy: Yes (2014) - Integumentary Hx Dermatological Disorder: No - Musculoskeletal/Rheumatological Hx Arthritis: Yes - Gastrointestinal Hx Gastrointestinal Disorders: Yes Hx Gastroesophageal Reflux: Yes HX Swallowing Problems: Yes (Due to severly sore throat) - Genitourinary/Gynecological Hx Genitourinary Disorders: No - Psychiatric Hx Anxiety: Yes Hx Depression: Yes ("occasional") Hx Substance Use: No - Surgical History Hx Orthopedic Surgery: Yes (B/L HIP SX) Other/Comment: CARPAL TUNNEL, HEEL SPUR, Port placement, removal - Anesthesia Hx Anesthesia Reactions: No Hx Malignant Hyperthermia: No - Suicidal Assessment Feels Threatened In Home Enviroment: No Family/Social History - Physician Review Nursing Documentation Reviewed: Yes Family/Social History: Unknown Family HX Smoking Status: Never Smoked Hx Alcohol Use: No Hx Substance Use: No Hx Substance Use Treatment: No Allergies/Home Meds Allergies/Adverse Reactions: Allergies acetaminophen [From Vicodin] Allergy (Verified 01/28/18 13:29) RASH hydrocodone bitartrate [From Vicodin] Allergy (Verified 06/20/18 10:41) RASH oxycodone HCl [From Percocet] Allergy (Verified 06/20/18 10:41) PAIN Review of Systems - Physician Review All systems were reviewed & negative as marked: Yes - Review of Systems Constitutional: absent: Fevers Respiratory: absent: SOB, Cough Cardiovascular: absent: Chest Pain, HEATH Gastrointestinal: Diarrhea. absent: Abdominal Pain, Nausea, Vomiting, Appetite Changes, Hematochezia Genitourinary Female: absent: Dysuria, Hematuria Musculoskeletal: absent: Back Pain, Neck Pain Skin: absent: Rash Neurological: absent: Headache, Dizziness Physical Exam Vital Signs Reviewed: Yes Vital Signs Temp Pulse Resp BP Pulse Ox 06/20/18 10:37 98.2 F 74 20 161/79 H 99 Temperature: Afebrile Blood Pressure: Hypertensive Pulse: Regular Respiratory Rate: Normal Appearance: Positive for: Well-Appearing, Non-Toxic, Comfortable Pain Distress: None Mental Status: Positive for: Alert and Oriented X 3 - Systems Exam Head: Present: Atraumatic, Normocephalic Pupils: Present: PERRL Extroacular Muscles: Present: EOMI Conjunctiva: Present: Normal Mouth: Present: Moist Mucous Membranes Respiratory/Chest: Present: Clear to Auscultation, Good Air Exchange. No: Respiratory Distress, Accessory Muscle Use Cardiovascular: Present: Regular Rate and Rhythm, Normal S1, S2. No: Murmurs Abdomen: Present: Tenderness (Diffuse abdominal tenderness ), Guarding. No: Distention, Peritoneal Signs, Rebound Upper Extremity: Present: Normal Inspection. No: Cyanosis, Edema Lower Extremity: Present: Normal Inspection. No: Edema Neurological: Present: GCS=15, CN II-XII Intact, Speech Normal Skin: Present: Warm, Dry, Normal Color. No: Rashes Psychiatric: Present: Alert, Oriented x 3, Normal Insight, Normal Concentration Medical Decision Making ED Course and Treatment: 06/20/18 11:05 Impression: 73 year old female presents to the Emergency department complaining of multiple episodes of diarrhea. Differential Diagnosis included but are not limited to: Gastroenteritis Plan: -- CT of Abdomen/Pelvis -- Labs -- Pepcid -- IV Fluids -- Reassess and disposition Prior Visits: Notes and results from previous visits were reviewed. Progress Notes: 06/20/18 14:00 Patient is feeling better after some IVF. She denies any lightheadedness or dizziness. Denies any vomiting or abdominal pain. She will f/u with her PMD Dr. Sarah and her GI doctor Dr. Christine. I explained the CT results to her about the inflammation around the suture line that this could be from the diarrhea/colitis or from a start of a new mass. She will make sure to follow up w ith Dr. Christine and her PMD. - RAD Interpretation Radiology Orders: 06/20/18 11:05 ABD PELVIS PO & IV CONTRAST [CT] Stat - Medication Orders Current Medication Orders: Sodium Chloride (Sodium Chloride 0.9%) 1,000 mls @ 100 mls/hr IV .Q10H STA Stop: 06/20/18 21:04 Discontinued Medications Famotidine (Pepcid) 20 mg IVP STAT STA Stop: 06/20/18 11:06 - Scribe Statement The provider has reviewed the documentation as recorded by the Scribe Eboni Yeboah. All medical record entries made by the Scribe were at my direction and personally dictated by me. I have reviewed the chart and agree that the record accurately reflects my personal performance of the history, physical exam, medical decision making, and the department course for this patient. I have also personally directed, reviewed, and agree with the discharge instructions and disposition. Disposition/Present on Arrival - Present on Arrival Any Indicators Present on Arrival: No History of DVT/PE: No History of Uncontrolled Diabetes: No Urinary Catheter: No History of Decub. Ulcer: No History Surgical Site Infection Following: None - Disposition Have Diagnosis and Disposition been Completed?: Yes Diagnosis: Diarrhea Disposition: HOME/ ROUTINE Disposition Time: 14:00 Patient Plan: Discharge Condition: IMPROVED Discharge Instructions (ExitCare): Diarrhea in Adolescents and Adults Additional Instructions: ANTHONY ARCHIBALD, thank you for letting us take care of you today. Your provider was Flaquito Hinds DO and you were treated for Diarrhea. The emergency medical care you received today was directed at your acute symptoms. If you were prescribed any medication, please fill it and take as directed. It may take several days for your symptoms to resolve. Return to the Emergency Department if your symptoms worsen, do not improve, or if you have any other problems. Please contact your doctor or call one of the physicians/clinics you have been referred to that are listed on the Patient Visit Information form that is included in your discharge packet. Bring any paperwork you were given at discharge with you along with any medications you are taking to your follow up visit. Our treatment cannot replace ongoing medical care by a primary care provider outside of the emergency department. Thank you for allowing the [facility] team to be part of your care today. If you had an X-Ray or CT scan: A Radiologist will review the ED reading if any change in treatment is needed we will contact you. If you had a blood, urine, or wound culture: It will take several days for the results, if any change in treatment is needed we will contact you. If you had an STI test: It will take 48 hours for the results. Please call after 1 week if you have not heard back. Prescriptions: Ranitidine HCl [Zantac] 150 mg PO BID PRN #30 tablet PRN Reason: Pain, Mild (1-3) Referrals: Cuco Christine MD [Medical Doctor] - Follow up with primary Anibal Sarah DO [Family Provider] - Follow up with primary Forms: [employer] (Amharic)
[2018-06-20 11:59] LABS: BASO # 0.02 K/mm3 (0.0-2.0); BASO % 0.2 % (0.0-3.0); EOS % 0.3 % (1.5-5.0); GRAN # 8.09 (1.4-6.5); GRAN % 72.4 % (50.0-68.0); HEMOGLOBIN 11.4 g/dL (12.0-16.0); LYMPH # 2.1 (1.2-3.4); MEAN CELL VOLUME 86.6 fl (80.0-105.0); MEAN CORPUSCULAR HEMOGLOBIN 27.3 pg (25.0-35.0); MEAN CORPUSCULAR HGB CONC 31.5 g/dl (31.0-37.0); MEAN PLATELET VOLUME 10.3 fl (7.0-11.0); MONO # 0.9 (0.1-0.6); MONO % 8.1 % (1.0-6.0); RBC 4.18 10^6/uL (3.5-6.1); RED CELL DISTRIBUTION WIDTH 13.8 % (11.5-14.5); WHITE BLOOD COUNT 11.2 10^3/uL (4.5-11.0)
[2018-06-20 12:04] LABS: INR 1.03; PARTIAL THROMBOPLASTIN TIME 26.9 Seconds (25.1-36.5); PROTHROMBIN TIME 11.9 SECONDS (9.4-12.5)
[2018-06-20 12:09] LABS: ALB/GLOB RATIO 1.1 (1.1-1.8); ALBUMIN 3.7 g/dL (3.0-4.8); ALT/SGPT 22 U/L (7-56); AST/SGOT 21 U/L (14-36); BLOOD UREA NITROGEN 8 mg/dL (7-21); CALCIUM 9.1 mg/dL (8.4-10.5); GFR NON-AFRICAN AMERICAN > 60; LIPASE 32 U/L (23-300)
[2018-06-20] MEDS ORDERED: Potassium Chloride 20 mEq ER Tab PO STA (12:32)
--- NOTE | 2018-06-20 13:47 | CT ---
Date of service: 06/20/2018 PROCEDURE: CT Abdomen and Pelvis with contrast HISTORY: abd pain with diarrhea h/o colon CA COMPARISON: None. TECHNIQUE: Contrast dose: 150 cc of Omni 350 Radiation dose: Total exam DLP = 1453.73 mGy-cm. This CT exam was performed using one or more of the following dose reduction techniques: Automated exposure control, adjustment of the mA and/or kV according to patient size, and/or use of iterative reconstruction technique. FINDINGS: LOWER THORAX: Unremarkable. LIVER: Unremarkable. No gross lesion or ductal dilatation. GALLBLADDER AND BILE DUCTS: Multiple gallstones PANCREAS: Unremarkable. No gross lesion or ductal dilatation. SPLEEN: Unremarkable. ADRENALS: Unremarkable. No mass. KIDNEYS AND URETERS: Unremarkable. No hydronephrosis. No solid mass. VASCULATURE: Unremarkable. No aortic aneurysm. No aortic atherosclerotic calcification or mural plaque present. BOWEL: There is diverticulosis of the sigmoid colon. There is a suture line in the ascending colon there is mural thickening in this region. APPENDIX: Normal appendix. PERITONEUM: Unremarkable. No free fluid. No free air. LYMPH NODES: Unremarkable. No enlarged lymph nodes. BLADDER: Unremarkable. REPRODUCTIVE: Unremarkable. BONES: Disc bulge and facet arthropathy with severe central stenosis at L4-5 OTHER FINDINGS: None. IMPRESSION: There is a suture line in the ascending colon with adjacent mural thickening. This could be a chronic finding. Acute inflammation cannot be excluded. Multiple gallstones
[2018-06-20 14:12] VITALS: BP 154/80; PULSE 70; RESP 17; O2SAT 97
== END 2018-06-20 14:11 | disposition home or self-care (01) ==
LOC: ED 10:15
DX: R19.7 Diarrhea, unspecified (principal); I10 Essential (primary) hypertension; E03.9 Hypothyroidism, unspecified
CPT/HCPCS: 74177; 80053; 83690; 83735; 85025; 85610; 85730; 96374; 99283; J7030; Q9966; Q9967

== ENCOUNTER 2018-07-28 07:41 | Outpatient (CLI) | payer MEDICARE | END 2018-07-28 07:42 | disposition home or self-care (01) | LOC: CARDIO 07:41 ==